=== PATIENT | female | born 1990 | race Hispanic/Latino ===

== ENCOUNTER 2019-02-14 18:55 | Emergency (ER) | payer OTHER ==
[2019-02-14 19:00] VITALS: BMI 32.0
--- NOTE | 2019-02-14 20:24 | C.PDOC ---
History Of Present Illness 28 year old female presents to the ED c/o sore throat, fever, headache, neck pain since yesterday. Initial onset with sore throat now with increased pain to base of the neck. Patient states today temperature today was 102, now pain is diffuse to the neck worsens with movement, she states "everything feels stiff". Patient also c/o occasional lower back pain. Patient was evaluated at an urgent Care today [employer], had "negative flu and step test". Patient received Tylenol at 08:00, Advil 400 mg at 17:00. Patient denies nausea, vomit, light sensitivity, URI, GI, or UTI symptoms, rash, sick contacts, or recent travel. SORE THROAT FEVER MOTA NECK PAIN SINCE YEST. INITIAL ONSET SORE THROAT INCR PAIN BASE OF BACK OF HEAD. TODAY TM 102, NOW PAIN DIFFUSE NECK WORSE W MOVEMENT "EVERYTHING FEELS STIFF". +LOWER BACK PAIN. DENIES HO CHRONIC NECK PAIN. OCC LOWER BACK PAIN. NO NV, LIGHT SENSITIVITY, URI, GI OR UTI SX. EVAL [facility] [employer], "NEGATIVE FLU AND STREP TEST". TYL @ 0800, ADVIL 400 MG @ 1700. NO RASH, SICK CONTACTS, TRAVEL EXAM MILD DIST NONTOXIC HEENT THROAT CLEAR; NO PHOTOPHOBIA; CONJ CLEAR; NO CERV NODES NECK LIMITED FULL LAT ROTATION/EXT/FLEX DUE TO PAIN. SITTING UPRIGHT W NECK SLIGHT FLEXION. +B/L TEND PARACERV NO CSPINE TEND LUNGS CTA B/L NO W/R/R CV RRR ABD NEG SKIN WARM DIAPH NO RASH NO EDEMA EXT AROM WO DIFF ATRAUM NEURO AO3, NO FOCAL DEF REMAINDER NEG MDM FEVER, MOTA, NECK PAIN. VIRAL SYND VS PHARYNGITIS VS FEVER UNK CAUSE W ASSOC NECK SPASM. NO GROSS NEURO DEF. ?MENINGITIS. PT ADVISED POSSIBLE NEED FOR SPINAL TAP PENDING WORKUP <Kayla Darling - Last Filed: 02/15/19 02:47> History Per: Patient History/Exam Limitations: no limitations Onset/Duration Of Symptoms: Days (2) Current Symptoms Are (Timing): Worse Location Of Pain: Throat, Headache Sick Contacts (Context): None Associated Symptoms: Fever, Sore Throat, Neck Pain Ear Symptoms: Bilateral: None Recent travel outside of the [place]: No Additional History Per: Patient <Kayla Darling - Last Filed: 02/15/19 02:47> <Cresencio Oscar - Last Filed: 02/15/19 13:07> Time Seen by Provider: 02/14/19 19:05 Chief Complaint (Nursing): Flu-like Symptoms Past Medical History Reviewed: Historical Data, Nursing Documentation, Vital Signs Vital Signs: Last Vital Signs Temp 98.5 F 02/14/19 19:00 Pulse 80 02/14/19 19:00 Resp 20 02/14/19 19:00 BP 129/82 02/14/19 19:00 Pulse Ox 100 02/14/19 19:00 - Medical History PMH: No Chronic Diseases Surgical History: No Surg Hx Family History: States: Unknown Family Hx - Social History Hx Alcohol Use: Yes Hx Substance Use: No - Immunization History Hx Tetanus Toxoid Vaccination: No Hx Influenza Vaccination: No Hx Pneumococcal Vaccination: No <Kayla Darling - Last Filed: 02/15/19 02:47> Vital Signs: Last Vital Signs Temp 98.4 F 02/15/19 02:50 Pulse 75 02/15/19 02:50 Resp 18 02/15/19 02:50 BP 114/60 02/15/19 02:50 Pulse Ox 99 02/15/19 02:50 <Cresencio Oscar - Last Filed: 02/15/19 13:07> Review Of Systems Constitutional: Positive for: Fever. Negative for: Chills Eyes: Negative for: Vision Change ENT: Positive for: Throat Pain Cardiovascular: Negative for: Chest Pain, Palpitations Respiratory: Negative for: Cough, Shortness of Breath, Wheezing Gastrointestinal: Negative for: Nausea, Vomiting, Abdominal Pain Musculoskeletal: Positive for: Neck Pain Skin: Negative for: Rash Neurological: Positive for: Headache. Negative for: Weakness, Numbness, Dizziness <Kayla Darling - Last Filed: 02/15/19 02:47> Physical Exam - Physical Exam Appears: Non-toxic, In Acute Distress Skin: Normal Color, Warm, Dry, No Rash Head: Atraumatic, Normacephalic Eye(s): bilateral: Normal Inspection (no photophobia), Other (clear conjuctiva) Ear(s): Bilateral: Normal Oral Mucosa: Moist Throat: Normal, No Erythema, No Exudate Neck: Decreased ROM (limited Full lateral rotation,extension, flexion due to pain), No Midline Cervical Tenderness, Paracervical Tenderness (Bilateral ), Supple, Other (no cervical nodes. Sitting upright with neck slightly flexed) Chest: Symmetrical Cardiovascular: Rhythm Regular Respiratory: Normal Breath Sounds, No Rales, No Rhonchi, No Wheezing Gastrointestinal/Abdominal: Soft, No Tenderness, No Distention Extremity: Normal ROM, No Tenderness, Capillary Refill (< 2 seconds), No Swelling Extremity: Bilateral: Atraumatic Pulses: Left Dorsalis Pedis: Normal, Right Dorsalis Pedis: Normal Neurological/Psych: Oriented x3, Normal Speech, Normal Cognition, Other (no focal deficts) Gait: Steady <Kayla Darling - Last Filed: 02/15/19 02:47> ED Course And Treatment - Laboratory Results Result Diagrams: 02/14/19 20:52 02/14/19 20:52 Urine POC: Negative ECG: Interpreted By Me ECG Rhythm: Sinus Rhythm Rate From EC O2 Sat by Pulse Oximetry: 100 (ON RA) Pulse Ox Interpretation: Normal - Radiology CXR: Interpreted by Me CXR Interpretation: Yes: No Acute Disease - CT Scan/US CT head Other Rad Studies (CT/US): Read By Radiologist, Radiology Report Reviewed CT/US Interpretation: EXAM: CT Head Without IV contrast. CLINICAL HISTORY: Fever/headache. TECHNIQUE: Axial computed tomography images of the head/brain without intravenous contrast. COMPARISON: None provided. FINDINGS: BRAIN: No acute intraparenchymal hemorrhage. No mass lesion. No CT evidence for acute territorial infarct. No midline shift or extra-axial collections. VENTRICLES: No hydrocephalus. ORBITS: The orbits are unremarkable. SINUSES AND MASTOIDS: The paranasal sinuses and mastoid air cells are clear. BONES: No fracture. SOFT TISSUES: Unremarkable. IMPRESSION: No acute intracranial abnormality. . Electronically signed on Feb 14, 2019 10:22:10 PM EDT by: Arie Blank M.D., Certified by [facility], Diagnostic Radiology. CT c spine Other Rad Studies (CT/US): Read By Radiologist, Radiology Report Reviewed CT/US Interpretation: XAM: CT Cervical Spine With IV contrast. CLINICAL H ISTORY: Headache/neck pain/h/o osteomyelitis. TECHNIQUE: Axial computed tomography images of the cervical spine with intravenous contrast. Sagittal and coronal reformatted images were generated. Omnipaque 300 100 mL. COMPARISON: None provided. FINDINGS: ALIGNMENT: Bony alignment is anatomic. DEGENERATIVE CHANGES: No significant canal stenosis or neural foraminal narrowing evident. SOFT TISSUES: The prevertebral soft tissues are within normal limits. BONES: No acute fracture or aggressive appearing osseous lesion. No periosteal elevation seen to indicate osteomyelitis. IMPRESSION: No acute cervical spine abnormality. . Electronically signed on Feb 14, 2019 10:34:49 PM EDT by: Keven Bailey M.D., M.B.A., Certified By [facility]. Fellowship Trained MRI and CT Specialist. <Kayla Darling - Last Filed: 02/15/19 02:47> - Laboratory Results Result Diagrams: 02/14/19 20:52 02/14/19 20:52 Lab Results: pO2 26 mm/Hg (30-55) L 02/14/19 20:54 VBG pH 7.39 (7.32-7.43) 02/14/19 20:54 VBG pCO2 40 mmHg (40-60) 02/14/19 20:54 VBG HCO3 23.0 mmol/L 02/14/19 20:54 VBG Total CO2 25.4 mmol/L (22-28) 02/14/19 20:54 VBG O2 Sat (Calc) 49.7 % (40-65) 02/14/19 20:54 VBG Base Excess -0.7 mmol/L (0.0-2.0) L 02/14/19 20:54 VBG Potassium 3.5 mmol/L (3.6-5.2) L 02/14/19 20:54 Sodium 137.0 mmol/l (132-148) 02/14/19 20:54 Chloride 104.0 mmol/L (98-107) 02/14/19 20:54 Glucose 94 mg/dl (65-105) 02/14/19 20:54 Lactate 0.8 mmol/L (0.7-2.1) 02/14/19 20:54 PT 12.2 SECONDS (9.7-12.2) 02/14/19 20:52 INR 1.1 02/14/19 20:52 APTT 28 SECONDS (21-34) 02/14/19 20:52 Total Bilirubin 0.5 mg/dL (0.2-1.3) 02/14/19 20:52 AST 21 U/L (14-36) 02/14/19 20:52 ALT < 6 U/L (9-52) L 02/14/19 20:52 Alkaline Phosphatase 64 U/L (38-126) 02/14/19 20:52 Total Protein 7.6 g/dL (6.3-8.3) 02/14/19 20:52 Albumin 4.4 g/dL (3.5-5.0) 02/14/19 20:52 Globulin 3.2 gm/dL (2.2-3.9) 02/14/19 20:52 Albumin/Globulin Ratio 1.3 (1.0-2.1) 02/14/19 20:52 Urine Color Yellow (YELLOW) 02/14/19 21:19 Urine Clarity Clear (Clear) 02/14/19 21:19 Urine pH 5.0 (5.0-8.0) 02/14/19 21:19 Ur Specific [place] 1.010 (1.003-1.030) 02/14/19 21:19 Urine Protein Negative mg/dL (NEGATIVE) 02/14/19 21:19 Urine Glucose (UA) Normal mg/dL (Normal) 02/14/19 21:19 Urine Ketones 1+ mg/dL (NEGATIVE) H 02/14/19 21:19 Urine Blood Negative (NEGATIVE) 02/14/19 21: Urine Nitrate Negative (NEGATIVE) 02/14/19 21:19 Urine Bilirubin Negative (NEGATIVE) 02/14/19 21:19 Urine Urobilinogen Normal mg/dL (0.2-1.0) 02/14/19 21:19 Ur Leukocyte Esterase Trace Raza/uL (Negative) 02/14/19 21:19 Urine WBC (Auto) 6 /hpf (0-5) H 02/14/19 21:19 Urine RBC (Auto) 2 /hpf (0-3) 02/14/19 21:19 Ur Squamous Epith Cells 3 /hpf (0-5) 02/14/19 21:19 Urine Bacteria Occ (<OCC) H 02/14/19 21:19 <Cresencio Oscar T - Last Filed: 02/15/19 13:07> Progress - Re-Evaluation Re-evaluation Note: 02/14/19 23:06 PERSIST NECK STIFF, NUCHAL RIGID. VSS. NO PHOTOPHOBIA, NEURO GROSS INTACT. PER FAMILY, PT HAS HO CERVICAL SPINE DISC BULGE, OCC TRAPEZIUS SPASM. CURRENT PAIN MORE INTENSE THAN PRIOR. NO FOCAL WEAK/NUMB PT AND FAMILY ADVISED CANNOT R/O MENINGITIS WO SPINAL TAP. MUSCULOSKEL PAIN VS MENINGITIS. PT VOICES UNDERSTANDING OF RISKS/BENEFITS SPINAL TAP, AGREES TO PROCEED. 02/15/19 02:47 csf WNL NO PHOTOPHOBIA FEELS BETTER NEURO INTACT VSS. DC FU PMD - Data Reviewed Data Reviewed: Lab, Diagnostic imaging, EKG, Old records - Critical Care Citical Care: Excluding Proc Time Critical Care Time: 90 minutes <PhongKayla - Last Filed: 02/15/19 02:47> Medical Decision Making Medical Decision Making: MDM: Fever, headache, neck pain. Viral syndrome vs pharyngitis vs fever unknown cause with associated neck spasm. No gross neuro deficits. Questionable meningitis. Patient advised possible need for spinal tap pending workup. Plan: * VBG * CT c-spine * CT head * EKG * Labs * CXR * IV fluids * Toradol 30 mg IVP * Tylenol 975 mg PO * Blood culture * Influenza A B * rapid streph * UA <EfraínmayraKayla - Last Filed: 02/15/19 02:47> Disposition Counseled Patient/Family Regarding: Studies Performed, Diagnosis, Need For Followup, Rx Given - Disposition Disposition Time: 02:48 <PhongKayla - Last Filed: 02/15/19 02:47> <Cresencio Oscar - Last Filed: 02/15/19 13:07> - Disposition Referrals: YOUR,PMD [Other] Disposition: HOME/ ROUTINE Condition: IMPROVED Prescriptions: levoFLOXacin [Levaquin] 500 mg PO DAILY #7 tab Instructions: Fever of Unknown Origin (DC), Headache, Adult (DC) Forms: [facility] (Niuean), Work Excuse - Clinical Impression Clinical Impression: Fever, unknown origin, Neck pain, Headache - Scribe Statement The provider has reviewed the documentation as recorded by the Scribe Blair Hoff All medical record entries made by the Scribe were at my direction and personally dictated by me. I have reviewed the chart and agree that the record accurately reflects my personal performance of the history, physical exam, medical decision making, and the department course for this patient. I have also personally directed, reviewed, and agree with the discharge instructions and disposition. <Kayla Darling - Last Filed: 02/15/19 02:47> Addendum Addendum: Received call from radiologist today, CT C spine last night shows tonsillitis with phlegmon but without abscess or any drainable collection. Spoke with patient via phone, informed her of results, advised continuing levofloxacin which patient was prescribed. She states she will speak about this with her PMD and her father who is a physician. <Cresencio Oscar - Last Filed: 02/15/19 13:07> PROCEDURES - Lumbar Puncture Consent Obtained: Written Consent Time Out Performed: Yes Patient Position: Upright Skin Prep: 0.5% Chlorhexidine/Alcohol Local Anesthetic Used: Lidocaine 1% Amount of Anesthesia Used (mls): 10 Spinal Needle Gauge: 22G Interspace Used: L4-L5 Fluid Initially Obtained: Clear Complications: Traumatic Tap <Kayla Darling - Last Filed: 02/15/19 02:47>
[2019-02-14 21:01] LABS: VENOUS BLOOD GAS BASE EXCESS -0.7 mmol/L (0.0-2.0); VENOUS BLOOD GAS PCO2 40 mmHg (40-60); VENOUS BLOOD GAS PO2 26 mm/Hg (30-55); VENOUS BLOOD PH 7.39 (7.32-7.43)
[2019-02-14 21:04] LABS: BASO # 0.1 K/uL (0.0-0.2); BASO % 0.3 % (0.0-2.0); EOS % 0.1 % (0.0-4.0); HEMOGLOBIN 13.3 g/dL (11.0-16.0); LYMPH # 1.6 K/uL (1.0-4.3); LYMPH % 8.6 % (20.0-40.0); MEAN CELL VOLUME 92.1 fL (81.0-99.0); MEAN CORPUSCULAR HEMOGLOBIN 31.2 pg (27.0-31.0); MEAN CORPUSCULAR HGB CONC 33.9 g/dL (33.0-37.0); MEAN PLATELET VOLUME 9.1 fL (7.2-11.7); MONO # 1.5 K/uL (0.0-0.8); MONO % 8.3 % (0.0-10.0); NEUT # 15.5 K/uL (1.8-7.0); NEUT % 82.7 % (50.0-75.0); PLATELET COUNT 240 K/uL (130-400); RBC 4.25 Mil/uL (3.80-5.20); RED CELL DISTRIBUTION WIDTH 13.2 % (11.5-14.5); WHITE BLOOD COUNT 18.7 K/uL (4.8-10.8)
[2019-02-14 21:15] LABS: ALB/GLOB RATIO 1.3 (1.0-2.1); ALBUMIN 4.4 g/dL (3.5-5.0); AST/SGOT 21 U/L (14-36); BLOOD UREA NITROGEN 9 mg/dL (7-17); CALCIUM 9.7 mg/dl (8.6-10.4); GFR NON-AFRICAN AMERICAN > 60
[2019-02-14 21:18] LABS: ALT/SGPT < 6 U/L (9-52)
[2019-02-14 21:19] LABS: SQUAMOUS EPITHIAL 3 /hpf (0-5); URINE BACTERIA OCC (<OCC); URINE BILIRUBIN NEGATIVE (NEGATIVE); URINE BLOOD NEGATIVE (NEGATIVE); URINE CLARITY Clear (Clear); URINE COLOR Yellow (YELLOW); URINE GLUCOSE (UA) NORMAL (Normal); URINE LEUKOCYTE ESTERASE TRACE Leu/uL (Negative); URINE PROTEIN NEGATIVE (NEGATIVE); URINE UROBILINOGEN NORMAL mg/dL (0.2-1.0)
[2019-02-14 21:25] LABS: INR 1.1; PROTHROMBIN TIME 12.2 SECONDS (9.7-12.2)
[2019-02-14] MEDS ORDERED: Iodixanol 320 MG/ML 100 ML BOTTLE IV ONE (21:45)
[2019-02-14 21:48] LABS: LYMPHOCYTE 10 % (20-40); MONOCYTE 7 % (0-10); NEUTROPHIL 83 % (50-75); PLATELET ESTIMATE NORMAL (NORMAL); TOTAL CELLS COUNTED 100
[2019-02-14] MEDS ORDERED: Iohexol 300 100 ML IJ ONE (22:03)
[2019-02-14] MEDS ORDERED: Lidocaine 2% MPF (5 ml) Inj ONE (23:01)
[2019-02-14] MEDS ORDERED: Vancomycin 1 GM 1 GM/250 ML BAG IV STA (23:01)
[2019-02-14] MEDS ORDERED: Meropenem 1 GM in Sodium Chloride 0.9% 100 ML IVPB ONE (23:04)
[2019-02-14] MEDS ORDERED: Lidocaine 1% Inj (20ml) INFIL ONE (23:08)
[2019-02-14] MEDS ORDERED: Vancomycin 1 GM 1 GM/250 ML BAG IVPB ONE (23:19)
[2019-02-15 00:53] LABS: FLUID TYPE SPINAL FLUID
[2019-02-15 02:03] LABS: CSF APPEARANCE CLEAR/COLORLESS (CLEAR); CSF VOLUME 1 mL (0-1)
[2019-02-15 02:04] LABS: CSF VOLUME 1 mL (0-1)
[2019-02-15 02:07] LABS: CSF APPEARANCE SL CLOUDY (CLEAR)
[2019-02-15 02:51] VITALS: BP 114/60; PULSE 75; RESP 18; TEMP 98.4; O2SAT 99
--- NOTE | 2019-02-15 07:52 | CT ---
Date of service: 02/14/2019 PROCEDURE: CT HEAD WITHOUT CONTRAST. HISTORY: HEADACHE FEVER COMPARISON: None available. TECHNIQUE: Axial computed tomography images were obtained through the head/brain without intravenous contrast. Radiation dose: Total exam DLP = 1068.6 mGy-cm. This CT exam was performed using one or more of the following dose reduction techniques: Automated exposure control, adjustment of the mA and/or kV according to patient size, and/or use of iterative reconstruction technique. FINDINGS: HEMORRHAGE: No intracranial hemorrhage. BRAIN: No mass effect or edema. No atrophy or chronic microvascular ischemic changes. Mild bifrontal extra-axial prominence. VENTRICLES: Unremarkable. No hydrocephalus. CALVARIUM: Unremarkable. PARANASAL SINUSES: Unremarkable as visualized. No significant inflammatory changes. MASTOID AIR CELLS: Unremarkable as visualized. No inflammatory changes. OTHER FINDINGS: None. IMPRESSION: No acute intracranial abnormality. Focal hypodensity in the left basal ganglia may represent prominent perivascular space. Incidentally noted is mild bifrontal extra-axial prominence. If symptoms persists, consider correlation with MRI. A preliminary report was generated at 10:22 p.m. on 02/14/[address] Arie Blank from [facility].
--- NOTE | 2019-02-15 08:31 | CT ---
CT cervical spine HISTORY: Pain. Fever. COMPARISON: None available. TECHNIQUE: Multiple contiguous axial images were performed through the cervical spine with the use of intravenous contrast. Subsequently, sagittal and coronal reformatted images were obtained. FINDINGS: Mild narrowing at the atlantodental interval with some sclerosis. Mild reversal of the normal cervical lordosis. No evidence of acute displaced fracture dislocation. No gross prevertebral soft tissue swelling. Questionable posterior disc bulge at the C5-6 level. This would be better evaluated with MRI. Few shotty posterior triangle lymph nodes are noted bilaterally. Impression: No acute cervical spine abnormality. If there is persistent concern for abscess formation, consider correlation with a soft tissue neck contrast-enhanced CT for further evaluation. Clinical correlation. Few shotty posterior triangle lymph nodes are noted bilaterally. Questionable posterior disc bulge at the C5-6 level. This would be better evaluated with cervical spine MRI. A preliminary report was generated at 10:34 p.m. on 02/14/[address] Keven Bailey from [facility]. This case was placed in the PA review folder.
--- NOTE | 2019-02-15 09:15 | RAD ---
Chest x-ray single frontal view HISTORY: FEVER COMPARISON: No prior. FINDINGS: LUNGS: No active pulmonary disease. PLEURA: No significant pleural effusion identified, no pneumothorax apparent. CARDIOVASCULAR: No aortic atherosclerotic calcification present. Normal cardiac size. OSSEOUS STRUCTURES: No significant abnormalities. VISUALIZED UPPER ABDOMEN: Normal. OTHER FINDINGS: None. IMPRESSION: No active disease.
--- NOTE | 2019-02-15 23:25 | CARD ---
APPROVED REPORT Date of service: 02/14/2019 EKG Measurement Heart [id number] <Conclusion> Normal sinus rhythm with sinus arrhythmia Normal ECG
[2019-02-19 14:31] LABS: SOURCE CSF
== END 2019-02-15 03:00 | disposition home or self-care (01) ==
LOC: C.ER 18:55
DX: R50.9 Fever, unspecified (principal); M54.2 Cervicalgia; R51 Headache
CPT/HCPCS: 62270; 70450; 71045; 72126; 80053; 81001; 81025; 82803; 82945; 83735; 84100; 84157; 85025; 85610; 85730; 86618; 87040; 87070; 87430; 87801; 87804; 89050; 93005; 96361; 96365; 96366; 96367; 96375; 99285; J1885; J2185; J3370; J7030; Q9967